=== PATIENT | male | born 1995 | race Caucasian/White ===

== ENCOUNTER 2017-12-12 14:04 | Emergency (ER) | payer SELFPAY ==
[2017-12-12 14:06] VITALS: BP 129/71; PULSE 89; RESP 18; TEMP 36.6; O2SAT 96; BMI 22.1
[2017-12-12 14:35] VITALS: BP 119/70; PULSE 58; RESP 16; O2SAT 98
--- NOTE | 2017-12-12 14:36 | ED.VISSUMM ---
- ER Visit Summary Date of Service: 12/12/17 Chief Complaint: Right hand laceration History of Present Illness: The patient is a 22 M [id number]. History of prior drug abuse. States he was at home he tripped and when he tried to catch himself he hit a window which shattered and he cut the dorsum of his right hand. Denies any other injuries. States his last tetanus shot was 3 years ago. Denies other injuries. He absolutely denies punching the window. Physical Examination: Well-appearing young male. Vital signs are stable and afebrile. H EENT exam atraumatic. Pupils round reactive light. No signs of trauma. Neck nontender. Lungs clear to auscultation. Heart regular rhythm no murmur. Chest wall nontender. Abdomen soft nontender. Patient moving all 4 extremities. They are all neurovascular intact. Specifically right shoulder, elbow and wrist are nontender with full range of motion. The dorsum of the right hand has a 3-4 cm laceration that is linear. Laceration involves the skin and subcu tissue. There is no tendon or neurovascular involvement. He has full flexion-extension of the right hand. He has normal touch sensation to all digits of the hand. Normal water quality specialist strength. There is no pulsatile bleeding. I see no signs of any bony deformity or bony tenderness. I do not see or feel any signs of any foreign body or glass. Test Results: None done. Patient was offered but deferred right hand x-ray and clinically I do not feel is necessary. Emergency Department Course and Treatment: Right hand laceration repair: Dorsal right hand laceration 3 cm. Over the proximal small and ring finger metacarpals. No foreign body. Oozing of blood but no pulsatile bleeding. No bony tenderness or deformity. No extensor tendon involvement. Locally anesthetized with lidocaine. Cleaned using Shur-Clens. Wound explored. Copiously irrigated. Closed using 7 simple interrupted 5-0 Ethilon sutures. Proper hemostasis and wound closure was obtained. Patient tolerated procedure well. Hand remained neurovascularly intact post procedure. Treatment Plan: Wound care instructions. Suture removal in 10-14 days. Watch for any signs of infection. Ice and elevate. Tylenol and/or Motrin for pain. Disposition: Discharge Impression: Acute dorsum right hand laceration of 3-1/2 cm with ER repair. This note was generated with Dragon dictation software. It may contain incorrect words, spelling, and punctuation that were not noted in review of the chart prior to signing ED Disposition - Plan for ED Patient: Chief Complaint: Laceration Referrals: Care Physician,No Primary [Primary Care Provider] -
--- NOTE | 2017-12-12 14:40 | ED.DCSUM_ITS ---
- ER Visit Summary Date of Service: 12/12/17 Chief Complaint: Right hand laceration History of Present Illness: The patient is a 22 M [id number]. History of prior drug abuse. States he was at home he tripped and when he tried to catch himself he hit a window which shattered and he cut the dorsum of his right hand. Denies any other injuries. States his last tetanus shot was 3 years ago. Denies other injuries. He absolutely denies punching the window. Physical Examination: Well-appearing young male. Vital signs are stable and afebrile. H EENT exam atraumatic. Pupils round reactive light. No signs of trauma. Neck nontender. Lungs clear to auscultation. Heart regular rhythm no murmur. Chest wall nontender. Abdomen soft nontender. Patient moving all 4 extremities. They are all neurovascular intact. Specifically right shoulder, elbow and wrist are nontender with full range of motion. The dorsum of the right hand has a 3-4 cm laceration that is linear. Laceration involves the skin and subcu tissue. There is no tendon or neurovascular involvement. He has full flexion-extension of the right hand. He has normal touch sensation to all digits of the hand. Normal shop assistant strength. There is no pulsatile bleeding. I see no signs of any bony deformity or bony tenderness. I do not see or feel any signs of any foreign body or glass. Test Results: None done. Patient was offered but deferred right hand x-ray and clinically I do not feel is necessary. Emergency Department Course and Treatment: Right hand laceration repair: Dorsal right hand laceration 3 cm. Over the proximal small and ring finger metacarpals. No foreign body. Oozing of blood but no pulsatile bleeding. No bony tenderness or deformity. No extensor tendon involvement. Locally anesthetized with lidocaine. Cleaned using Shur-Clens. Wound explored. Copiously irrigated. Closed using 7 simple interrupted 5-0 Ethilon sutures. Proper hemostasis and wound closure was obtained. Patient tolerated procedure w ell. Hand remained neurovascularly intact post procedure. Treatment Plan: Wound care instructions. Suture removal in 10-14 days. Watch for any signs of infection. Ice and elevate. Tylenol and/or Motrin for pain. Disposition: Discharge Impression: Acute dorsum right hand laceration of 3-1/2 cm with ER repair. This note was generated with Dragon dictation software. It may contain incorrect words, spelling, and punctuation that were not noted in review of the chart prior to signing ED Disposition - Plan for ED Patient: Chief Complaint: Laceration Referrals: Care Physician,No Primary [Primary Care Provider] -
--- NOTE | 2017-12-12 14:40 | ED.DEP ---
ED Disposition - Plan for ED Patient: Disposition: Home or Assisted Living Chief Complaint: Laceration Instructions: ED Laceration Hand Referrals: Marlene Botello [NON-STAFF] - 10-14 Days suture removal Additional Instructions: Tylenol and/or Motrin for pain. Ice and elevate right hand and or significant bleeding. Keep hand dry and clean. Apply antibiotic ointment daily. Suture removal in 10-14 days.
== END 2017-12-12 15:02 | disposition home or self-care (01) ==
PROVIDERS: Emergency Provider Emergency Medicine
DX: S61.411A Laceration without foreign body of right hand, initial encounter (principal); W01.110A Fall on same level from slipping, tripping and stumbling with subsequent striking against sharp glass, initial encounter; Y93.01 Activity, walking, marching and hiking; Y92.009 Unspecified place in unspecified non-institutional (private) residence as the place of occurrence of the external cause; Y99.8 Other external cause status
CPT/HCPCS: 12002; 99284